=== PATIENT | female | born 2000 | race Caucasian/White ===

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

== ENCOUNTER 2018-05-17 06:35 | Inpatient (IN) ==
[~2018-05-17 06:35] MED LIST: ANCEF VIAL 1 GRAM ONE; LR 1000 ML IV 1,000 ML IV ONE
[2018-05-17] MEDS ORDERED: ANCEF VIAL 1 GRAM IVP ONE (06:39)
[2018-05-17] MEDS ORDERED: D5 1/2 NS 1000 ML 1,000 ML IV SCH (06:39)
[2018-05-17] MEDS ORDERED: DILAUDID INJ ONE (07:00)
[2018-05-17] MEDS ORDERED: XYLOCAINE 1 % (PLAIN) ONE (07:03)
[2018-05-17] MEDS ORDERED: MARCAINE 0.25% INJ ONE (07:03)
[2018-05-17] MEDS ORDERED: MARCAINE SPINAL ONE (07:04)
[2018-05-17] MEDS ORDERED: EPHEDRINE SULFATE INJ ONE (07:11)
[2018-05-17] MEDS ORDERED: D5 1/2 NS 1L W PITOCIN 20 UNITS/L 20 UNITS/1,000 ML BAG IV ONE (07:29)
[2018-05-17] MEDS ORDERED: LR 1000 ML IV 1,000 ML IV ONE (07:29)
[2018-05-17] MEDS ORDERED: DILAUDID INJ IVP PRN (09:06)
[2018-05-17] MEDS ORDERED: BENADRYL INJ 50 MG VIAL IVP PRN ×2 (09:06→09:24)
[2018-05-17] MEDS ORDERED: PHENERGAN INJ 25 MG IVP PRN (09:06)
[2018-05-17] MEDS ORDERED: REGLAN INJ 10 MG VIAL IVP PRN ×2 (09:06→09:24)
[2018-05-17] MEDS ORDERED: ZOFRAN INJ 4 MG VIAL IVP PRN ×2 (09:06→09:24)
[2018-05-17] MEDS ORDERED: TORADOL 30 MG VIAL IVP PRN (09:24)
[2018-05-17] MEDS ORDERED: PERCOCET TAB 5/325 MG PO PRN ×2 (09:24→16:28)
[2018-05-17] MEDS ORDERED: MYLICON TAB 80 MG CHEW PO PRN (09:24)
[2018-05-17] MEDS ORDERED: NARCAN INJ IVP PRN (09:24)
[2018-05-17] MEDS ORDERED: ADACEL or BOOSTRIX TDaP VACCINE IM ONE (09:24)
[2018-05-17] MEDS ORDERED: D5 1/2 NS 1000 ML 1,000 ML with PITOCIN 20 UNITS IV SCH ×2 (10:00)
[2018-05-17] MEDS ORDERED: FLUVIRIN IM ONE (10:17)
[2018-05-17] MEDS: FLUVIRIN IM ONE ×2 (10:23→10:26)
[2018-05-17] MEDS ORDERED: VERSED ONE (15:57)
[2018-05-17] MEDS ORDERED: DIPRIVAN VIAL ONE (15:57)
[2018-05-17] MEDS ORDERED: PITOCIN ONE (15:57)
[2018-05-17] MEDS ORDERED: MOTRIN TAB 800 MG PO PRN (16:28)
[2018-05-17] MEDS: ZANTAC PO SCH (20:20)
[2018-05-17] MEDS: COLACE CAP 100 MG PO SCH (20:20)
[2018-05-17] MEDS: BACTROBAN CREAM TOP SCH (21:28)
[2018-05-18 04:32] LABS: HEMATOCRIT 31.8 % (36.0-47.0); HEMOGLOBIN 10.8 g/dL (12.0-16.0)
[2018-05-18] MEDS: BACTROBAN CREAM TOP SCH (05:29)
[2018-05-18] MEDS ORDERED: PRENATAL PLUS PO SCH (09:00)
[2018-05-18] MEDS: ZANTAC PO SCH (09:37)
[2018-05-18] MEDS: COLACE CAP 100 MG PO SCH (09:37)
[2018-05-18 10:04] VITALS: BP 129/82
== END 2018-05-18 11:10 | disposition home or self-care (01) | DRG 788 ==
LOC: LD 06:35 → MED/SURG 09:37
PROVIDERS: ADMIT Specialist; ATTEND Specialist
DX: O24.410 Gestational diabetes mellitus in pregnancy, diet controlled; Z37.0 Single live birth; O34.211 Maternal care for low transverse scar from previous cesarean delivery; Z01.818 Encounter for other preprocedural examination; Z23 Encounter for immunization; Z3A.39 39 weeks gestation of pregnancy
CPT/HCPCS: 36415; 80048; 80307; 81001; 85014; 85018; 85025; 85610; 85730; 86592; 86850; 86900; 86901; 87086; 90686; 90715; A4216; A4222; S0020; S0197; G0434; J0690; J1170; J2250; J2405; J2590; J2704; J2765; J3490; J7120